=== PATIENT | female | born 1935 | race Two or more races ===

== ENCOUNTER 2023-09-29 18:40 | Emergency (ER) | payer OTHER ==
[~2023-09-29] VITALS: Ht 167.6 cm; Wt 59.0 kg
[2023-09-29] MEDS ORDERED: ARICEPT5 MG (18:51)
[2023-09-29] MEDS ORDERED: [UNRECOGNIZED DRUG - OTHER] (18:51)
[2023-09-29] MEDS ORDERED: NAMENDA1 EACH PO (18:51)
[2023-09-29] MEDS ORDERED: ZOFRAN8 MG PO (23:28)
[2023-09-29] MEDS ORDERED: ANTIVERT25 M2 PO (23:28)
[2023-09-29] MEDS ORDERED: PEPCID AC20 MG PO (23:28)
[2023-09-30] MEDS ORDERED: AVAPRO300 MG (18:50)
== END 2023-09-29 23:48 | disposition home or self-care (01) ==
LOC: EDBD 18:41 → ER 18:41
DX: S00.83XA Contusion of other part of head, initial encounter (principal); W18.39XA Other fall on same level, initial encounter; Y93.F9 Activity, other caregiving; Y92.012 Bathroom of single-family (private) house as the place of occurrence of the external cause; I10 Essential (primary) hypertension; F03.90 Unspecified dementia, unspecified severity, without behavioral disturbance, psychotic disturbance, mood disturbance, and anxiety

== ENCOUNTER 2023-09-30 18:24 | Emergency (ER) | payer OTHER ==
[~2023-09-30] VITALS: Ht 160 cm; Wt 65.8 kg
[~2023-09-30 18:24] MED LIST: ANTIVERT25 M2 PO; ARICEPT5 MG; NAMENDA1 EACH PO; PEPCID AC20 MG PO; ZOFRAN8 MG PO; [UNRECOGNIZED DRUG - OTHER]
[2023-09-30] MEDS ORDERED: AVAPRO300 MG (18:50)
[2023-09-30 19:28] LABS: HEMATOCRIT 30.7 % (36.0-45.00); HEMOGLOBIN 10.6 g/dL (12.0-15.00); MEAN CELL VOLUME 96.1 fL (80.00-100.00); MEAN CORPUSCULAR HEMOGLOBIN 33.1 pg (27.00-32.0); MEAN CORPUSCULAR HGB CONC 34.5 g/dl (32.0-36.0); PLATELET COUNT 335 K/uL (150-450); RED BLOOD COUNT 3.19 M/uL (4.00-6.00); RED CELL DISTRIBUTION WIDTH 13.4 % (11.5-14.5)
[2023-09-30 19:48] LABS: ALBUMIN 3.3 gm/dL (3.4-5.0); BILIRUBIN TOTAL 0.67 mg/dL (0.3-1.2); CALCIUM 8.9 mg/dL (8.5-10.1); CREATININE SERUM 1.04 mg/dL (0.55-1.02); GFR 49.89; GLOBULINA 3.5 G/DL (2.4-3.5); POTASSIUM 3.93 mEq/L (3.5-5.1); TOTAL PROTEIN 6.8 gm/dL (6.4-8.2)
== END 2023-09-30 22:12 | disposition designated cancer center or children's hospital (05) ==
LOC: ER 18:24
PROVIDERS: General Practice
DX: S72.142A Displaced intertrochanteric fracture of left femur, initial encounter for closed fracture (principal); W18.39XA Other fall on same level, initial encounter; Y93.89 Activity, other specified; Y92.89 Other specified places as the place of occurrence of the external cause; S89.82XA Other specified injuries of left lower leg, initial encounter; I10 Essential (primary) hypertension